=== PATIENT | male | born 1980 | race Hispanic/Latino ===

== ENCOUNTER → 2018-04-10 | Day surgery (SDC) | payer BC ==
[~2018-04-10] MED LIST: ENTOCORT EC3 MG PO; FENTANYL CITRATE/PF 100MCG/2 ML INJ ONE; HYOSCYAMINE SULFATE 0.5 MG/ML INJ ONE; LIDOCAINE HCL 2% LOCAL INJ 5 ML SDV VIAL INJ ONE; MIDAZOLAM HCL 2 MG/2 ML VIAL ONE; MULTI-VITAMIN1 EACH; PENTASA500 MG PO; PROPOFOL IV EMULSION 10 MG/ML 50 ML VIAL ONE
[2018-04-10 10:37] VITALS: BP 117/85
--- NOTE | 2018-05-11 15:06 | Operative Report ---
DATE OF PROCEDURE: April 10, 2018 PROCEDURE PERFORMED: Colonoscopy and polypectomy. INDICATIONS FOR COLONOSCOPY: A personal history of serrated polyps, history of Crohn disease. MEDICATION: Patient was done under MAC. Please see anesthesiologist's note. PROCEDURE: With patient in left lateral decubitus position, a flexible fiberoptic Olympus colonoscope was inserted into the rectum with ease, advanced all the way to the cecum. The ileocecal valve was intubated and the scope was advanced into the terminal ileum. Grossly the terminal ileum appeared to be within normal limits and biopsies were obtained. The scope was then withdrawn back into the colon. It was then withdrawn slowly. Mucosa overlying the ascending and the transverse appeared to be within normal limits. Two polyps were snared from the descending colon. Two polyps were hot biopsied from the sigmoid colon. The mid and distal rectum was ulcerated and biopsies were obtained. The scope was then retroflexed into the distal rectum and small internal hemorrhoids were noted, none of which was actively bleeding. The scope was then straightened out. It was subsequently withdrawn. Patient tolerated the procedure well. IMPRESSIONS 1. Terminal ileum appeared within normal limits. Biopsies were obtained. 2. Descending colon polyps x2, snared. 3. Sigmoid colon polyps x2, hot biopsied. 4. Ulcerative proctitis, mid and distal rectum, biopsies obtained. 5. Internal hemorrhoids, none actively bleeding. PLAN: Follow up histology. Initiate Canasa suppositories 1,000 mg nightly, and continue the rest of meds. Timing of followup colonoscopy pending pathology report. Job#: [id number] FILEMON
== END | disposition home or self-care (01) ==
LOC: OR 06:50
PROVIDERS: ATTEND Internal Medicine Gastroenterology
DX: Z09 Encounter for follow-up examination after completed treatment for conditions other than malignant neoplasm (principal); D12.4 Benign neoplasm of descending colon; D12.5 Benign neoplasm of sigmoid colon; K50.10 Crohn's disease of large intestine without complications; K51.20 Ulcerative (chronic) proctitis without complications; K64.8 Other hemorrhoids
CPT/HCPCS: 45380; 45384; 45385; J1980; J2001; J2250

== ENCOUNTER → 2020-01-20 | Day surgery (SDC) | payer BC, OTHER ==
[~2020-01-20] MED LIST changes: +HYOSCYAMINE 0.125 MG TAB ONE; -HYOSCYAMINE SULFATE 0.5 MG/ML INJ ONE; -LIDOCAINE HCL 2% LOCAL INJ 5 ML SDV VIAL INJ ONE; +PROPOFOL IV EMULSION 10 MG/ML 20 ML VIAL ONE; -PROPOFOL IV EMULSION 10 MG/ML 50 ML VIAL ONE
[2020-01-20 18:28] VITALS: BP 113/84
--- NOTE | 2020-01-20 21:53 | Operative Report ---
DATE OF PROCEDURE: 01/20/2020 SURGEON: Georges Celestin MD PROCEDURE: Colonoscopy with biopsies. INDICATIONS FOR COLONOSCOPY: Rectal bleeding, history of inflammatory bowel disease, history of colon polyps. MEDICATIONS: The patient was done under MAC, please see anesthesiologist's note. PROCEDURE IN DETAIL: With the patient in the left lateral decubitus position, a flexible fiberoptic Olympus colonoscope was inserted into the rectum with ease and advanced all the way to the cecum. Mucosa overlying the cecum appeared to be within normal limits. The ileocecal valve was intubated and the scope was advanced into the terminal ileum, was appeared to be within normal limits. The scope was then withdrawn back into the colon. It was then withdrawn slowly and mucosa overlying the ascending colon and transverse colon appeared to be within normal limits. Mild inflammatory changes were noted in the left colon and random biopsies were obtained. The distal rectum was ulcerated and the biopsies were obtained. The scope was then retroflexed and there were some internal hemorrhoids noted, none of which was actively bleeding. The scope was then straightened out, it was subsequently withdrawn, and the patient tolerated the procedure well. IMPRESSION: 1. Mild patchy inflammatory changes, left colon, random biopsies obtained. 2. Ulcerative proctitis, biopsied. 3. Internal hemorrhoids, none actively bleeding. PLAN: Follow up histology. Check IBD panel, CRP, and sedimentation rate. Initiate Canasa suppositories 1000 mg at bedtime. The patient will need small bowel series if not done. Geroges Celestin MD [facility] [place] /[id number]
== END | disposition home or self-care (01) ==
LOC: OR 12:51
PROVIDERS: ATTEND Internal Medicine Gastroenterology
DX: K52.9 Noninfective gastroenteritis and colitis, unspecified (principal); Z86.010 Personal history of colon polyps; K51.20 Ulcerative (chronic) proctitis without complications; K64.8 Other hemorrhoids; Z01.810 Encounter for preprocedural cardiovascular examination; Z01.812 Encounter for preprocedural laboratory examination; Z11.59 Encounter for screening for other viral diseases; Z68.32 Body mass index [BMI] 32.0-32.9, adult
CPT/HCPCS: 36415; 45380; 85651; 86140; 86256; 86671; 93005; J2704; U0002; 45378; J2250; J3010

== ENCOUNTER → 2022-07-25 | Outpatient (CLI) | payer BC ==
[~2022-07-25] MED LIST changes: -FENTANYL CITRATE/PF 100MCG/2 ML INJ ONE; -HYOSCYAMINE 0.125 MG TAB ONE; +IRON PO; -MIDAZOLAM HCL 2 MG/2 ML VIAL ONE; -PROPOFOL IV EMULSION 10 MG/ML 20 ML VIAL ONE; +VITAMIN D PO
== END ==
LOC: RAD 11:22
PROVIDERS: ATTEND Nurse Practitioner
DX: K59.09 Other constipation (principal); K50.90 Crohn's disease, unspecified, without complications; Z86.010 Personal history of colon polyps
CPT/HCPCS: 74018

== ENCOUNTER → 2022-08-08 | Outpatient (CLI) | payer BC | LOC: DX 09:35 | PROVIDERS: ATTEND Nurse Practitioner | DX: K50.90 Crohn's disease, unspecified, without complications (principal); K59.09 Other constipation; Z86.010 Personal history of colon polyps | CPT/HCPCS: 74018; 74250 ==

== ENCOUNTER → 2024-04-22 | Day surgery (SDC) | payer BC ==
[~2024-04-22] MED LIST changes: +FENTANYL CITRATE/PF 100MCG/2 ML INJ ONE; +HYOSCYAMINE SULFATE 0.5 MG/ML INJ ONE; +LIDOCAINE HCL 2% LOCAL INJ 5 ML SDV VIAL INJ ONE; +MIDAZOLAM HCL 2 MG/2 ML VIAL ONE; +PROPOFOL IV EMULSION 10 MG/ML 20 ML VIAL ONE
[2024-04-22] MEDS: LACTATED RINGER'S 1,000 ML ONE (05:55)
[2024-04-22 07:55] VITALS: BP 120/90; PULSE 96; RESP 14; O2SAT 99
[2024-04-22 10:00] LABS: CDIFF AG QUIK CHEK NEGATIVE (NEGATIVE); CDIFF TOX QUIK CHEK NEGATIVE (NEGATIVE)
== END | disposition home or self-care (01) ==
LOC: OR 05:31
PROVIDERS: ATTEND Internal Medicine Gastroenterology
DX: K52.9 Noninfective gastroenteritis and colitis, unspecified (principal); K62.6 Ulcer of anus and rectum; K64.8 Other hemorrhoids; K63.5 Polyp of colon; Z01.810 Encounter for preprocedural cardiovascular examination
CPT/HCPCS: 45380; 83630; 83993; 86140; 87045; 87177; 87324; 87328; 87449; 93005; J1980; J2003; J2250; J2704; J3010; J7121; 45378